=== PATIENT | male | born 1960 | race Caucasian/White ===

== ENCOUNTER 2025-05-02 21:00 | Emergency (ER) | payer MEDICARE ==
[2025-05-02] MEDS ORDERED: Sodium Chloride 0.9% 10 ML Syringe FLUSH PRN (21:03)
[2025-05-02] MEDS: Ondansetron 4 MG/2 ML SDV IVPUSH ONE (21:13)
[2025-05-02 21:16] LABS: BASOPHILS ABSOLUTE AUTO 0.1 x10-3/uL (0.0-0.3); BASOPHILS PERCENT AUTO 0.8 % (0.3-3.8); EOSINOPHILS ABSOLUTE AUTO 0.5 x10-3/uL (0.0-0.6); EOSINOPHILS PERCENT AUTO 3.5 % (0.1-6.8); LYMPHOCYTES ABSOLUTE AUTO 3.4 x10-3/uL (0.5-4.5); LYMPHOCYTES PERCENT AUTO 24.4 % (15.8-45.3); MEAN PLATELET VOLUME 9.2 fL (6.7-11.0); MONOCYTES ABSOLUTE AUTO 1.0 x10-3/uL (0.0-1.2); MONOCYTES PERCENT AUTO 6.8 % (5.5-15.2); NEUTROPHILS ABSOLUTE AUTO 9.0 x10-3/uL (1.7-6.9); NEUTROPHILS PERCENT AUTO 64.5 % (40.3-71.8); PLATELET COUNT,PLT 469 x10(3)uL (117-477); RED BLOOD CELL COUNT 2.69 x10(6)uL (3.90-5.90); RED CELL DISTRIBUTION WIDTH 13.1 % (12.4-15.0); WHITE BLOOD CELL COUNT,WBC 14.0 x10-3/uL (3.2-10.1)
[2025-05-02 21:25] LABS: INR 1.0 (1.00-1.24)
[2025-05-02 21:26] LABS: A/G RATIO 1.0; ALANINE AMINOTRANSFERASE,ALT 22 U/L (12-36); ASPARTATE AMNIOTRANSFERASE,AST 9 IU/L (5-25); BILIRUBIN TOTAL 0.2 mg/dL (0.1-1.3); BLOOD UREA NITROGEN,BUN 46 mg/dL (7-18); CARBON DIOXIDE,CO2 17 mmol/L (21-32); CHLORIDE,CL 104 mmol/L (100-110); CREATININE 1.7 mg/dL (0.70-1.30); ESTIMATED GFR 44 mL/min (>60); POTASSIUM,K 4.6 mmol/L (3.5-5.3); PROTEIN TOTAL,TP 4.4 g/dL (6.0-8.0); SODIUM,NA 139 mmol/L (135-145)
[2025-05-02 21:27] LABS: PTT,PARTIAL THROMBOPLSTIN TIME 21.0 SECONDS (24.4-33.2)
[2025-05-02 21:31] LABS: GLUCOSE RANDOM 450 mg/dL (80-116)
[2025-05-02 21:33] LABS: PRO B-TYPE NATRIUR PEPT,BNPPRO 358.0 pg/mL (<=125)
[2025-05-02] MEDS: Norepinephrine Bit/D5W Premix 4 MG/250 ML BAG IV SCH (21:45)
== END 2025-05-02 22:40 ==
LOC: FB.ED 21:00 → MERGE 21:00 → FB.ED 22:40
DX: D50.0 Iron deficiency anemia secondary to blood loss (chronic) (principal); I25.10 Atherosclerotic heart disease of native coronary artery without angina pectoris; I25.701 Atherosclerosis of coronary artery bypass graft(s), unspecified, with angina pectoris with documented spasm; E78.5 Hyperlipidemia, unspecified; E11.9 Type 2 diabetes mellitus without complications; I10 Essential (primary) hypertension
CPT/HCPCS: 36415; 36430; 71045; 80053; 83880; 84484; 85025; 85610; 85730; 86850; 86900; 86901; 86920; 86922; 93005; 96365; 96375; 99285; J2405; J2470; J7030; P9016; 93010; 99291